=== PATIENT | female | born 1960 | race Two or more races ===

== ENCOUNTER 2023-03-24 06:27 | Day surgery (SDC) | payer OTHER ==
[~2023-03-24] VITALS: Ht 162.6 cm; Wt 88.5 kg
[~2023-03-24 06:27] MED LIST: METOPROLOL SUC200 MG PO; NORVASC5 MG PO; SYNTHROID175 MCG PO; ZOLOFT50 MG PO
== END 2023-03-24 17:30 | disposition home or self-care (01) ==
LOC: CIR.AMB 06:27
PROVIDERS: ATTEND Surgery
DX: D05.11 Intraductal carcinoma in situ of right breast (principal); N62 Hypertrophy of breast; N64.81 Ptosis of breast; Z20.822 Contact with and (suspected) exposure to COVID-19; R59.0 Localized enlarged lymph nodes
CPT/HCPCS: 19301; 38525; 38792; 19318; 19281; A9541; L8699